=== PATIENT | female | born 1985 | race Caucasian/White ===

== ENCOUNTER → 2021-07-10 | Outpatient (CLI) | payer SELFPAY ==
[~2021-07-10] MED LIST: MIRALAX 119 GR119 GM PO
[2021-07-10 12:17] LABS: HEMOGLOBIN 12.6 gm/dl (12.3-15.3); RED BLOOD COUNT 4.04 M/UL (4.00-5.10); WHITE BLOOD COUNT 9.4 K/UL (4.5-11.0)
[2021-07-12 08:17] LABS: HIV AB/P24 AG SCREEN Non Reactive (Non Reactive); RUBELLA ANTIBODIES, IGG 3.71 index (Immune >0.99)
[2021-07-12 11:17] LABS: HBSAG SCREEN Negative (Negative); HCV ANTIBODY 2.7 (0.0-0.9)
[2021-07-12 16:13] LABS: TREPONEMA PALLIDUM ANTIBODIES Non Reactive (Non Reactive)
== END ==
LOC: LAB 11:39
PROVIDERS: Obstetrics & Gynecology
DX: Z34.00 Encounter for supervision of normal first pregnancy, unspecified trimester (principal)
CPT/HCPCS: 36415; 85025; 86762; 86780; 86803; 86900; 86901; 87340; 87389